=== PATIENT | female | born 1995 | race Caucasian/White ===

== ENCOUNTER 2018-04-14 01:58 | Inpatient (IN) | payer OTHER ==
[~2018-04-14] VITALS: Ht 160 cm; Wt 95.3 kg
[2018-04-14 02:48] LABS: ABSOLUTE BASOPHIL COUNT 0 /CUMM (0.0-0.2); ABSOLUTE EOSINOPHIL COUNT 0.2 /CUMM (0.0-0.7); ABSOLUTE LYMPH COUNT 2.6 /CUMM (1.2-3.4); ABSOLUTE MONOCYTE COUNT 0.6 /CUMM (0.10-0.60); BASOPHIL % 0.3 % (0.0-2.0); EOSINOPHIL % 1.4 % (0-5); GRANULOCYTE % 70.2 % (42.2-75.2); HEMATOCRIT 33.9 % (37-47); MEAN CORPUSCULAR HGB 31.3 PG (27.0-31.0); MEAN CORPUSCULAR HGB CONC 33.6 G/DL (33.0-37.0); MEAN CORPUSCULAR VOLUME 93.2 FL (81.0-99.0); MEAN PLATELET VOLUME 8.7 FL (7.4-10.4); PLATELET COUNT 233 /CUMM (130-400); RBC DISTRIBUTION WIDTH 13.5 % (11.5-14.5); RED BLOOD CELL CT 3.64 /CUMM (4.20-5.40); WHITE BLOOD CELL COUNT 11.4 /CUMM (4.8-10.8)
--- NOTE | 2018-04-14 18:43 | Labor & Delivery Summary ---
Delivery Summary Vaginal Delivery: Vaginal: vertex Breech Delivery: Breech: assisted/forceps Episiotomy/Lacerations: Episiotomy/Lacerations: both Type: RML and sulcus tears Repair: layered 3-0 Polysorb Anesthesia: epi/local Placenta: Placenta: spontanteous, normal, 3 vessel Anesthesia: epidural Baby's Weight: 6/4 Apgars - 1 Min: 8 Apgars - 5 Min: 9 Additional Comments: Vacuum assited vag secondary to nonreassuring heart rate tracing with second stage. Vacuum applied at +1 station in ELIZABETH position. Bladder previously drained and epidural working.
--- NOTE | 2018-04-14 18:52 | History & Physical Pre-Op ---
General Information and HPI History of Present Illness: 22yo G1 lmp unknown edc8/05/12 at 37w3d presents with PROM. + GBS. care complete and otherwise unremarkable. Allergies/Medications Allergies: Coded Allergies: No Known Allergies (09/11/17) Past History Medical History Neurological: NONE EENT: NONE Cardiovascular: NONE Respiratory: NONE Gastrointestinal: NONE Hepatic: NONE Renal: NONE Psychiatric: NONE Endocrine: NONE Blood Disorders: NONE Cancer(s): NONE SPECIAL EDUCATION SUPERVISOR/Reproductive: NONE Surgical History Pertinent Surgical History: non-contributory Past Family/Social History Psychosocial History Smoking Status: Never Smoked Review of Systems Review of Systems Constitutional: Reports: no symptoms. EENTM: Reports: no symptoms. Cardiovascular: Reports: no symptoms. Respiratory: Reports: no symptoms. GI: Reports: no symptoms. Genitourinary: Reports: no symptoms. Musculoskeletal: Reports: no symptoms. Skin: Reports: no symptoms. Neurological/Psychological: Reports: no symptoms. Hematologic/Endocrine: Reports: no symptoms. Immunologic/Allergic: Reports: no symptoms. All Other Systems: Reviewed and Negative Exam & Diagnostic Data Last 24 Hrs of Vital Signs/I&O Intake & Output 04/14 1600 04/14 0800 04/14 0000 Intake Total Output Total Balance Patient 210 lb Weight Physical Exam: HEENT: NCAT Chest: CTA CV: nl S1S2 Abd: gravid, cephalic, EFW 7 Cx: 1/0/-3 Ext: no c/c/e Neuro: nonfocal Assessment/Plan Assessment/Plan: PROM at 37 GBS IV PCN, Pitocin IOL As Ranked By This Provider Problem List: 1.
[2018-04-15 08:18] LABS: ABSOLUTE BASOPHIL COUNT 0 /CUMM (0.0-0.2); ABSOLUTE EOSINOPHIL COUNT 0.1 /CUMM (0.0-0.7); ABSOLUTE LYMPH COUNT 2.5 /CUMM (1.2-3.4); ABSOLUTE MONOCYTE COUNT 0.7 /CUMM (0.10-0.60); BASOPHIL % 0.3 % (0.0-2.0); EOSINOPHIL % 0.8 % (0-5); GRANULOCYTE % 76.4 % (42.2-75.2); HEMATOCRIT 29.4 % (37-47); MEAN CORPUSCULAR HGB 31.5 PG (27.0-31.0); MEAN CORPUSCULAR HGB CONC 33.9 G/DL (33.0-37.0); MEAN PLATELET VOLUME 9.5 FL (7.4-10.4); PLATELET COUNT 180 /CUMM (130-400); RBC DISTRIBUTION WIDTH 13.8 % (11.5-14.5); RED BLOOD CELL CT 3.16 /CUMM (4.20-5.40); WHITE BLOOD CELL COUNT 14.4 /CUMM (4.8-10.8)
--- NOTE | 2018-04-15 11:16 | PN- Post Delivery/GYN ---
Subjective Subjective: NO C/O Review of Systems: NEG Objective Last 24 Hrs of Vital Signs/I&O VSS AFEBRILE Physical Exam: FF EXT NT Assessment/Plan Assessment/Plan S/P PPD 1 STABLE CPM DISCHARGE HOME TOMORROW Problem List: 1.
[2018-04-15] MEDS ORDERED: DOCUSATE SODIU100 M3 PO (11:17)
[2018-04-15] MEDS ORDERED: IBUPROFEN800 M1 PO (11:17)
== END 2018-04-16 11:19 | DRG 775 ==
LOC: CBCO 01:58 → GNO 02:18
PROVIDERS: Obstetrics & Gynecology
PROC: 0HQ9XZZ Repair Perineum Skin, External Approach (ICD-10-PCS; principal; 2018-04-14)
PROC: 10D07Z6 Extraction of Products of Conception, Vacuum, Via Natural or Artificial Opening (ICD-10-PCS; principal; 2018-04-14)
DX: O70.0 First degree perineal laceration during delivery (principal); O99.824 Streptococcus B carrier state complicating childbirth; O76 Abnormality in fetal heart rate and rhythm complicating labor and delivery; Z3A.37 37 weeks gestation of pregnancy; Z37.0 Single live birth
CPT/HCPCS: GNOS; 36415; 81001; 84112; 86920; 86922; 87086; J1200; J1885; J2790; J7120